=== PATIENT | female | born 1950 | race Two or more races ===

== ENCOUNTER 2020-09-12 09:04 | Day surgery (SDC) | payer BC ==
[2020-09-06 11:05] VITALS: BMI 24.9
[2020-09-12] MEDS: CIPROFLOXACIN 0.3% EYE DROPS 5 ML BOTTLE ONE ×3 (10:20→10:30)
[2020-09-12] MEDS: CYCLOPENTOLATE 2% OPHTH SOLN 2 ML BOTTLE ONE ×3 (10:20→10:30)
[2020-09-12] MEDS: PHENYLEPHRINE 2.5% OPHTH SOLN 15 ML BOTTLE ONE ×3 (10:20→10:30)
[2020-09-12] MEDS: TROPICAMIDE 1% OPHTH SOLN 15 ML BOTTLE ONE ×3 (10:20→10:30)
[2020-09-12] MEDS ORDERED: MIDAZOLAM HCL 2 MG/2 ML SINGLE DOSE VIAL ONE (11:47)
[2020-09-12] MEDS ORDERED: TETRACAINE 0.5% OPHTH SOLN 2 ML BOTTLE ONE (11:50)
[2020-09-12] MEDS ORDERED: NEO/POLYMYX B SULF/DEXAMETH OPHTHALMIC 5ML BOTTLE ONE (11:50)
[2020-09-12] MEDS ORDERED: CARBACHOL 0.01% INTRA-OCULAR 1.5 ML VIAL ONE (11:50)
[2020-09-12] MEDS ORDERED: BSS (NA/CA/MG/K) BALANCED SALT SOLUTION OPHTH SOLN 15 ML BOTTLE ONE (11:50)
[2020-09-12] MEDS ORDERED: LIDOCAINE 1% P/F 10 MG/ML VIAL ONE (11:50)
[2020-09-12] MEDS ORDERED: ACETAMINOPHEN 325 MG TABLET (FP) PO PRN (12:39)
[2020-09-12] MEDS ORDERED: ONDANSETRON 4 MG/2 ML VIAL IVPUSH PRN (12:39)
[2020-09-12] MEDS ORDERED: LACTATED RINGERS SOLUTION 1,000 ML IV SCH (12:45)
[2020-09-12 12:48] VITALS: TEMP 97.8
[2020-09-12] MEDS ORDERED: ACETAMINOPHEN 325 MG TABLET (FP) ONE (12:48)
[2020-09-12 13:12] VITALS: BP 133/56; PULSE 80
== END 2020-09-12 13:12 | disposition home or self-care (01) ==
LOC: FASU 09:04
PROVIDERS: ATTEND Ophthalmology
PROC: 08RJ3JZ Replacement of Right Lens with Synthetic Substitute, Percutaneous Approach (ICD-10-PCS; principal; 2020-09-12 12:04)
DX: H26.8 Other specified cataract (principal)